=== PATIENT | female | born 1965 | race Caucasian/White ===

== ENCOUNTER 2018-05-05 07:35 | Emergency (ER) | payer BC ==
--- NOTE | 2018-05-05 09:07 | EDM.PDOC ---
ED HPI GENERAL MEDICAL PROBLEM - General Chief Complaint: Back Pain or Injury Stated Complaint: BACK PAIN Time Seen by Provider: 05/05/18 07:57 Source of Information: Reports: Patient History Limitations: Reports: No Limitations - History of Present Illness INITIAL COMMENTS - FREE TEXT/NARRATIVE: The patient presents with left lower back pain that radiates down her left leg. This started a few days ago. The patient was at work and she had to pull on a railing in her trailer to install it and after that she noticed some pain. That has gotten worse. She has no history of back pain. She has no numbness or weakness. She has no bowel or bladder problems. Onset: Sudden Duration: Day(s): (2) Location: Reports: Back, Lower Extremity, Left Quality: Reports: Sharp Severity: Moderate Improves with: Reports: Immobilization Worsens with: Reports: Movement Context: Reports: Activity (She was pulling on a railing at work) Associated Symptoms: Reports: No Other Symptoms Left Lower Back Pain Score (Numeric/FACES): 8 - Related Data Allergies Allergy/AdvReac Type Severity Reaction Status Date / Time codeine Allergy Nausea and Verified 05/05/18 07:50 Vomiting morphine Allergy Nausea and Verified 05/05/18 07:49 Vomiting Home Meds: Home Meds Levothyroxine. 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: Dysfunctional Uterine Bleeding, Polycystic Ovaries Endocrine/Metabolic History: Reports: Hypothyroidism - Past Surgical History GI Surgical History: Reports: Bariatric Procedure, Colon Female Surgical History: Reports: Tubal Ligation Social & Family History - Tobacco Use Smoking Status *Q: Current Every Day Smoker Years of Tobacco use: 35 Packs/Tins Daily: 1 - Caffeine Use Caffeine Use: Reports: Coffee - Recreational Drug Use Recreational Drug Use: No ED ROS GENERAL - Review of Systems Review Of Systems: See Below Constitutional: Reports: No Symptoms HEENT: Reports: No Symptoms Respiratory: Reports: No Symptoms Cardiovascular: Reports: No Symptoms Endocrine: Reports: No Symptoms GI/Abdominal: Reports: No Symptoms : Reports: No Symptoms Musculoskeletal: Reports: Back Pain (Left lower back pain radiating down the left leg) Neurological: Denies: Numbness, Weakness ED EXAM,LOWER BACK PAIN/INJURY - Physical Exam Exam: See Below Exam Limited By: No Limitations General Appearance: Alert, No Apparent Distress Ears: Normal External Exam Nose: Normal Inspection Head: Atraumatic, Normocephalic Neck: Normal Inspection Respiratory/Chest: No Respiratory Distress, Lungs Clear, Normal Breath Sounds Cardiovascular: Regular Rate, Rhythm, No Edema, No Murmur GI/Abdominal: Soft, Non-Tender, No Organomegaly, No Mass Back Exam: Other (Mild edema to the left lower back with mild pain upon palpation. Good sensation and pulses to the left leg.) Course - Vital Signs Last Recorded V/S: Last Vital Signs Temp 96.6 F 05/05/18 07:42 Pulse 62 05/05/18 07:42 Resp 16 05/05/18 07:42 BP 134/86 05/05/18 07:42 Pulse Ox 100 05/05/18 07:42 - Orders/Labs/Meds Orders: Active Orders 24 hr Category Date Time Status Lumbar Spine 2 or 3V [CR] Stat Exams 05/05/18 08:14 Taken - Re-Assessments/Exams Free Text/Narrative Re-Assessment/Exam: 05/05/18 09:01 The x-ray of her back shows nothing acute. I will get her on a muscle relaxer and something more for pain. Departure - Departure Time of Disposition: 09:10 Disposition: Home, Self-Care 01 Condition: Good Clinical Impression: Low back pain Qualifiers: Chronicity: acute Back pain laterality: left Sciatica presence: with sciatica Sciatica laterality: sciatica of left side Qualified Code(s): M54.42 - Lumbago with sciatica, left side - Discharge Information *PRESCRIPTION DRUG MONITORING PROGRAM REVIEWED*: No *COPY OF PRESCRIPTION DRUG MONITORING REPORT IN PATIENT VICENTE: No Referrals: PCP,None [Primary Care Provider] - Additional Instructions: Take the flexeril 3 times per day as needed for pain. Take motrin or aleve. You may also take hydrocodone as needed for pain. Try to keep moving but not to much and you may try the hot tub today. Please return if you are worse. - My Orders Last 24 Hours: My Active Orders 05/05/18 08:14 Lumbar Spine 2 or 3V [CR] Stat - Assessment/Plan Last 24 Hours: My Active Orders 05/05/18 08:14 Lumbar Spine 2 or 3V [CR] Stat
== END 2018-05-05 09:15 | disposition home or self-care (01) ==
LOC: JD.ED 07:35
DX: M54.42 Lumbago with sciatica, left side (principal); F17.210 Nicotine dependence, cigarettes, uncomplicated; E03.9 Hypothyroidism, unspecified; Z88.5 Allergy status to narcotic agent
CPT/HCPCS: 72100; 99283